=== PATIENT | female | born 1945 | race Caucasian/White ===

== ENCOUNTER → 2022-11-21 | Outpatient (CLI) | payer MEDICARE, OTHER ==
[2022-11-21 09:20] LABS: Partial Thromboplastin Time 23.8 sec (22.0-30.0); Prothrombin Time 10.2 sec (9.0-12.0)
[2022-11-21 15:36] LABS: Basophils # (A) 0.03 X 10*3/uL (0.00-0.10); Basophils % (A) 0.4 %; Eosinophils # (A) 0.45 X 10*3/uL (0.04-0.35); Eosinophils % (A) 6.1 %; HCT 33.7 % (37.2-46.3); HGB 10.6 d/dL (12.0-15.0); Lymphocytes # (A) 1.57 X 10*3/uL (0.90-5.00); Lymphocytes % (A) 21.1 %; MCHC 31.5 d/dL (32.0-37.0); MCV 89.2 FL (80.0-97.0); Mean Platelet Volume 9.2 FL (9.5-12.2); Monocytes # (A) 0.51 X 10*3/uL (0.20-1.00); Monocytes % (A) 6.9 %; NRBC Per 100 WBC 0 X 10*3/uL (0.00-0.01); Neutrophils # (A) 4.84 X 10*3/uL (1.80-7.70); Neutrophils % (A) 65.1 %; Platelet Count 365 X 10*3/uL (140-440); RBC 3.78 X 10*6/uL (4.10-5.20); RDW 13.8 % (11.5-14.5); WBC 7.43 X 10*3/uL (4.50-10.00)
[2022-11-21 16:00] LABS: Blood Urea Nitrogen 30.9 mg/dL (9.0-27.0); Calcium 9.9 mg/dL (8.7-10.3); Carbon Dioxide 25.1 mmol/L (21.6-31.8); Chloride 99 mmol/L (96-109); Glucose 147 mg/dL (70-110); Potassium 5.2 mmol/L (3.5-5.5); Sodium 136 mmol/L (135-145)
== END | disposition home or self-care (01) ==
LOC: LABPAT 08:41
PROVIDERS: ATTEND Orthopaedic Surgery
DX: Z01.812 Encounter for preprocedural laboratory examination (principal); M17.11 Unilateral primary osteoarthritis, right knee; Z22.322 Carrier or suspected carrier of Methicillin resistant Staphylococcus aureus
CPT/HCPCS: 36415; 80048; 85025; 85610; 85730; 87070

== ENCOUNTER 2022-12-10 05:53 | Day surgery (SDC) | payer MEDICARE, OTHER ==
--- NOTE | 2022-12-09 12:38 | HP ---
HISTORY AND PHYSICAL DATE OF SCHEDULED SURGERY: 12/10/2022. HISTORY OF PRESENT ILLNESS: Maritza Torres is a 77-year-old patient seen with symptomatic right knee osteoarthritis. We discussed options, she elected to proceed with right total knee arthroplasty, consent was obtained. Cardiac clearance provided by Dr. Barone. PAST MEDICAL HISTORY: Hypertension, hyperlipidemia, cardiovascular disease. PAST SURGICAL HISTORY: Cardiac catheterization with stent insertion, appendectomy. DAILY MEDICATIONS: 1. Pravastatin. 2. Aspirin. 3. Metoprolol. 4. Lisinopril. 5. Hydrocodone. 6. Brilinta. 7. Advair. ALLERGIES: Motrin. SOCIAL HISTORY: She denies tobacco use. PHYSICAL EVALUATION OF THE RIGHT KNEE: Range of motion is negative 2 to 120 degrees. Tenderness in medial joint line. Crepitus, medial patellofemoral compartments with range of motion. Pain with patellofemoral compression. Ligaments stable. Hip rotation without pain. Distal neurovascular exam is intact. RADIOGRAPHS: Right knee radiographs reveal severe osteoarthritic changes. IMPRESSION: 1. Right knee osteoarthritis. 2. Hypertension. 3. Hyperlipidemia. 4. Cardiovascular disease. PLAN: Right total knee arthroplasty. MMODL / IJN: [id number] /
[~2022-12-10 05:53] MED LIST: ACETAMINOPHEN TAB 500 MG TAB PO PRN; MELOXICAM 7.5 MG TAB PO PRN; TRANEXAMIC 1,000 MG/100ML-NACL 1,000 MG in SALINE 1 100ML.BAG IVPB PRN
[2022-12-10] MEDS ORDERED: LIDOCAINE 1% (10MG/ML) FOR IV START INTRADERMA PRN (06:02)
[2022-12-10] MEDS ORDERED: DEXAMETHASONE SOD PHOSPHATE 4 MG/ML 1 ML VIAL IV ONE (06:02)
[2022-12-10] MEDS ORDERED: ONDANSETRON 4 MG/2 ML VIAL IVP PRN (06:02)
[2022-12-10] MEDS: LACTATED RINGERS 1,000 ML IV SCH (06:20)
[2022-12-10 06:55] LABS: Glucose,Whole Blood 154 mg/dL (70-110)
[2022-12-10] MEDS ORDERED: MIDAZOLAM 2 MG/2 ML VIAL IVP ONE (07:19)
[2022-12-10] MEDS ORDERED: fentaNYL (PF) 50 MCG/ML 2 ML AMP IVP ONE (07:20)
[2022-12-10] MEDS ORDERED: SODIUM CHLORIDE 0.9% (PF) 10 ML VIAL ONE (07:33)
[2022-12-10] MEDS ORDERED: TRANEXAMIC 1,000 MG/100ML-NACL PREMIX BAG ONE (07:33)
[2022-12-10] MEDS ORDERED: PROPOFOL 10 MG/ML 20 ML VIAL IV ONE (07:33)
[2022-12-10] MEDS ORDERED: MIDAZOLAM 2 MG/2 ML VIAL ONE (07:33)
[2022-12-10] MEDS ORDERED: ROPIVACAINE 5 MG/ML 30 ML VIAL ONE (07:33)
[2022-12-10] MEDS ORDERED: Acetaminophen-Codeine 300-30mg TAB PO PRN (09:09)
[2022-12-10] MEDS ORDERED: NALOXONE 0.4 MG/ML 1 ML VIAL IV PRN (09:09)
[2022-12-10] MEDS ORDERED: HYDROmorphone 0.5 MG/0.5 ML SYRINGE IVP PRN ×2 (09:09)
--- NOTE | 2022-12-10 09:09 | P.OP ---
Date of Procedure: 12/10/22 Preoperative Diagnosis: Right knee osteoarthritis Postoperative Diagnosis: Right knee osteoarthritis Procedure(s) Performed: Right total knee arthroplasty Implants: 1. Depuy attune size 4 right cruciate-retaining cemented femur 2. Depuy attune size 4 fixed bearing cemented tibial baseplate 3. Depuy attune size 4 fixed bearing cruciate retaining 70 mm polyethylene tibial insert 4. Ddpuy attune 35 mm all polyethylene cemented patella Anesthesia: regional (Adductor canal catheter, Ipack block), spinal Surgeon: Emerson Rolle Magazine Repairer #1: Bebo Rock Estimated Blood Loss (ml): 35 Pathology: none sent Condition: stable Disposition: PACU Indications for Procedure: 77-year-old patient seen with symptomatic right knee osteoarthritis. After having treatment options discussed, she elected to proceed with total knee arthroplasty. Operative Findings: See description of procedure Description of Procedure: Patient was taken to the operative suite after having an adductor canal catheter placed by the department of anesthesia. Patient underwent a spinal anesthetic by the department of anesthesia. Patient was given preoperative IV intake antibiotics and TXA. A well-padded tourniquet was placed about the right lower extremity. The lower extremity was then prepped and draped in the normal sterile orthopedic fashion. The extremity was elevated, a tourniquet was insufflated to 300. A standard anterior incision was made sharply through skin. Dissection was taken down through the subcutaneous soft tissues down to the extensor mechanism. A medial arthrotomy was performed, patella was everted and knee was flexed. There was advanced osteoarthritis noted. I introduced my distal intramedullary femoral drill. I then introduced the distal femoral cutt ing jig. Sal BURRIS secured the cutting jig with 2 pins. I held retractors in position while Sal BURRIS performed the distal femoral resection through the guide area we now removed her distal femoral cutting guide. We now placed our 4-in-1 femoral cutting block and positioned and it was secured with 2 pins by Sal BURRIS while I held the block in position. The distal femoral finishing was now completed. A proximal tibial cutting guide was positioned. I held the guide in the appropriate position with both hands well Sal BURRIS inserted stabilizing pins into the guide. Proximal tibial cut was made. We now placed a trial femoral component into position, along with an appropriate size tibial tray and insert. We now took the knee through range of motion and had full extension good flexion and good overall soft tissue balance noted. The patella was everted and stabilized with 2 towel clips held by Sal BURRIS while I performed a flush with patellar quad tendon utilizing a fresh sawblade. We templated the patella, appropriate drill holes were made. An appropriate trial patella was positioned, knee was taken through full range of motion with the patella tracking very nicely. The trial patella was removed. Drill holes were made through the femoral component. All trial components were removed after marking off the appropriate rotation of the tibia. Retractors were now positioned along the proximal tibia. An appropriate keel punch was made with the appropriate size tibial guide by myself on Sal BURRIS assisted by holding retractors. At this point appropriate size implants were chosen and opened. The joint was irrigated copiously with pulse lavage mechanical irrigation. The wound was irrigated with pulse lavage mechanical irrigation. We mixed antibiotic methylmethacrylate. We placed the knee into flexion. We placed multiple retractors assisted by Sal BURRIS to expose the proximal tibia. Once the methyl methacrylate was ready, the tibial component was cemented into place removing any excess methylmethacrylate form by both myself and Sal BURRIS. The femoral component was cemented into place removing the removing any excess methylmethacrylate performed by both myself and Sal BURRIS. We then inserted the appropriate size polyethylene tibial insert. We made sure that it was locked into position. We took the knee into full extension, and then back in a flexion making sure we had removed any excess methylmethacrylate. The patellar component was then cemented down and secured with clamp. Excess methylmethacrylate removed. We kept the knee in full extension, patellar clamp in position until methylmethacrylate had hardened. Once it had hardened the patellar clamp was removed. The knee was taken through full range of motion. The patella tracked nicely. There was good soft tissue balancing. The tourniquet was now released. Additional hemostasis was achieved via electrocautery. A second gram of TXA was given. The wound again was irrigated with pulse lavage mechanical irrigation. The extensor mechanism was repaired with Ethibond suture. We checked the repair with range of motion and it was stable. The subcutaneous soft tissues were repaired with Vicryl in layers. The skin was approximated with pernio/Dermabond. Sterile dressings were applied followed by loose web roll and Russell bandage. The patient was transferred to a bed, and taken to recovery in stable and satisfactory condition. Sal BURRIS assisted with this complex procedure.
--- NOTE | 2022-12-10 09:17 | P.ANPRN ---
Procedure Note - Anesthesia - Nerve Block Performed Right Adductor Canal Infusion Time Out Performed: Yes (0716) Date of Procedure: 12/10/22 Procedure Start Time: : Procedure Stop Time: Location of Patient: PreOp Indication: Acute Post-Operative Pain, Requested by Surgeon Specifically requested for management of pain by DrWilmer: Emerson Rolle Sedation Type: Sedate with meaningful contact maintained Preparation: Sterile Prep Position: Supine Catheter Depth at Skin (cm): 8 Catheter: Indwelling Needle Types: Pajunk Needle Gauge: 18 Ultrasound used to visualize needle placement: Yes Ultrasound used to observe medication spread: Yes Injectate: 0.5% Ropivacaine (see comment for volume) (15cc+ 5cc nacl pf) Blood Aspirated: No Pain Paresthesia on Injection Noted: No Resistance on Injection: Normal Image Stored and Saved: Yes Events: Uneventful and Well Tolerated
--- NOTE | 2022-12-10 09:18 | P.ANPRN ---
Procedure Note - Anesthesia - Nerve Block Performed Right iPack Single Time Out Performed: Yes (0719) Date of Procedure: 12/10/22 Procedure Start Time: Procedure Stop Time: Location of Patient: PreOp Indication: Acute Post-Operative Pain, Requested by Surgeon Specifically requested for management of pain by DrWilmer: Sascha Escobedo Sedation Type: Sedate with meaningful contact maintained Preparation: Sterile Prep Position: Supine Catheter: None Needle Types: Pajunk Needle Gauge: 21 Ultrasound used to visualize needle placement: Yes Ultrasound used to observe medication spread: Yes Injectate: 0.5% Ropivacaine (see comment for volume) (15cc+ 5cc nacl pf) Blood Aspirated: No Pain Paresthesia on Injection Noted: No Resistance on Injection: Normal Image Stored and Saved: Yes Events: Uneventful and Well Tolerated
--- NOTE | 2022-12-10 09:50 | XR ---
EXAMINATION TYPE: XR knee limited RT DATE OF EXAM: 12/10/2022 9:45 AM INDICATION: Patient age:Female; 77 years old; Reason for study: Evaluation for Postop abnormality and alignment; [facility]. COMPARISON: Right knee radiograph 11/02/2022 TECHNIQUE: The Right knee(s) was examined in frontal and crosstable lateral projections. FINDINGS: Postsurgical changes from right knee arthroplasty with distal femoral and proximal tibial components. Hardware appears intact with appropriate alignment. There is associated soft tissue gas and edema. No acute fracture or dislocation. IMPRESSION: Postsurgical changes from right knee arthroplasty. Hardware appears intact with appropriate alignment .
[2022-12-10] MEDS ORDERED: ROPIVACAINE 0.2%-NS ON-Q PUMP 2 MG/ML EACH MISCELLANE PRN (10:04)
[2022-12-10] MEDS: HYDROmorphone 0.5 MG/0.5 ML SYRINGE IVP PRN ×5 (11:45→19:42)
[2022-12-10] MEDS ORDERED: SODIUM CHLORIDE 0.9% 1,000 ML IV ONE ×2 (13:19)
[2022-12-10 13:45] LABS: Glucose,Whole Blood 265 mg/dL (70-110)
[2022-12-10] MEDS ORDERED: INSULIN ASPART (NovoLOG) 100 UNIT/ML VIAL SQ ONE (14:10)
[2022-12-10] MEDS ORDERED: LABETALOL SYRINGE 5 MG/ML (4 ML SYR) IVP ONE (14:15)
[2022-12-10 16:54] LABS: Glucose,Whole Blood 169 mg/dL (70-110)
[2022-12-10] MEDS: ONDANSETRON 4 MG/2 ML VIAL IVP PRN (18:08)
[2022-12-10] MEDS ORDERED: DEXTROSE 50% SYRINGE 50 ML IVP PRN ×2 (18:08)
[2022-12-10] MEDS: Acetaminophen-Codeine 300-30mg TAB PO PRN ×2 (18:08→21:02)
[2022-12-10] MEDS: INSULIN ASPART (NovoLOG) 100 UNIT/ML VIAL SQ SCH (19:05)
[2022-12-10] MEDS: ENOXAPARIN 30 MG/0.3 ML SYRINGE SQ SCH (20:51)
[2022-12-10] MEDS ORDERED: SENNOSIDES-DOCUSATE SODIUM 1 EACH TAB PO SCH (21:00)
[2022-12-10] MEDS ORDERED: PRAVASTATIN SODIUM 80 MG TAB PO SCH (21:00)
[2022-12-10] MEDS: SACUBITRIL/VALSARTAN 49 MG-51 MG TABLET PO SCH (21:01)
[2022-12-10] MEDS: NIACIN TR 500 MG CAPLET PO SCH (21:01)
[2022-12-10] MEDS: POTASSIUM CHLORIDE ER 20 MEQ TAB.ER PO SCH (21:01)
[2022-12-10] MEDS: GLIMEPIRIDE 1 MG TAB PO SCH (21:02)
[2022-12-10 21:04] LABS: Glucose,Whole Blood 162 mg/dL (70-110)
[2022-12-10] MEDS: SODIUM CHLORIDE 0.9% 1,000 ML IV SCH (21:05)
[2022-12-10] MEDS: carvediloL 12.5 MG TAB PO SCH (21:05)
--- NOTE | 2022-12-10 21:17 | P.CONS ---
History of Present Illness - Reason for Consult Consult date: 12/10/22 Medical management Requesting physician: Emerson Rolle - Chief Complaint Right knee surgery - History of Present Illness Very pleasant 77-year-old patient follows with Dr. Briseno. Chronic stable medical conditions include CAD with stent, COPD, diabetes, hypertension, hyperlipidemia, psoriasis. Patient has undergone right total knee arthroplasty. Slight nausea. No chest pain no shortness of breath. Laying in bed. Review of systems: GEN.: None EYES: None HEENT: None NECK: None RESPIRATORY: None CARDIOVASCULAR: None GASTROINTESTINAL: None GENITOURINARY: None MUSCULOSKELETAL: Joint pains LYMPHATICS: None HEMATOLOGICAL: None PSYCHIATRY: None NEUROLOGICAL: None Social history: Lives alone. Smoked for about 20 years stopped in 1983. About 1-1/2 packs a day. No alcohol. Physical examination: VITAL SIGNS: 97.7, 91, 18, 150/74, 90% room air GENERAL: BMI 34.5, declining but awake not in distress. EYES: Pupils equal. Conjunctiva normal. HEENT: External appearance of nose and ears normal, oral cavity grossly normal. NECK: JVD not raised; masses not palpable. HEART: First and second heart sounds are normal; no edema. LUNGS: Respiratory rate normal; clear to auscultation. ABDOMEN: Soft, nontender, liver spleen not palpable, no masses palpable. PSYCH: Alert and oriented x3; mood and affect normal. MUSCULOSKELETAL:No Clubbing/cyanosis;muscles-grossly intact. Dressing over the right knee. OA. NEUROLOGICAL: Cranial nerves grossly intact; no facial asymmetry, power and sensation grossly intact. LYMPHATICS: No lymph nodes palpable in the axilla and neck INVESTIGATIONS, reviewed in the clinical context: 11/21/2022: White count 7.4 hemoglobin 10.6 platelets 365 sodium 136 potassium 5.2 BUN 30.9 creatinine 1.5 Assessment and plan: -Right total arthroplasty Pain control and DVT prophylaxis per orthopedics -Diabetes mellitus type 2 and oral hypoglycemic Metformin thousand milligrams twice a day. Amaryl 1 mg by mouth twice a day. Diabetic diet. Follow Accu-Cheks and sliding scale. -COPD in a prior smoker Ventolin 2 puffs twice a day. Advair 250/50 one puff twice a day -Hyperlipidemia Pravastatin 80 mg daily at bedtime. Niacin. -CAD with a prior history of stent Aspirin. Coreg. -Obesity BMI 34.5 Weight loss measures Care was discussed with the patient. Questions answered. Home medications and resume. DVT prophylaxis per Dr. Walsh Thank you Past Medical History Past Medical History: Coronary Artery Disease (CAD), COPD, Diabetes Mellitus, Hyperlipidemia, Hypertension, Myocardial Infarction ([place]), Osteoarthritis (OA) Additional Past Medical History / Comment(s): HX OF COLITIS, PSORIASIS, recent heart cath with fluid on lungs and SOB afterwards. hospitalized ( CHF per Dr Whaley's notes) Last Myocardial Infarction Date:: 08/16/12 History of Any Multi-Drug Resistant Organisms: None Reported Past Surgical History: Appendectomy, Heart Catheterization, Heart Catheterization With Stent, Joint Replacement, Orthopedic Surgery, Tubal Ligation Additional Past Surgical History / Comment(s): CARDIAC-STENT X2, ARTHROSCOPY RT HIP, ANTERIOR TOTAL RIGHT HIP REPLACEMENT, nandini ARTHROSCOPIC SHOULDER Past Anesthesia/Blood Transfusion Reactions: No Reported Reaction Date of Last Stent Placement:: 08/2012 Past Psychological History: No Psychological Hx Reported Smoking Status: Former smoker Past Alcohol Use History: None Reported Additional Past Alcohol Use History / Comment(s): STARTED SMOKING AT AGE 16 QUIT SMOKING 1983, SMOKED 1 1/2 PPD Past Drug Use History: None Reported - Past Family History Brother(s) Family Medical History: Cancer Additional Family Medical History / Comment(s): PROSTATE CA Mother Family Medical History: Cancer Additional Family Medical History / Comment(s): KIDNEY Medications and Allergies Home Medications Medication Instructions Recorded Confirmed Type Multivitamins, Thera [Multivitamin] 1 tab PO DAILY 07/29/13 12/10/22 History Niacin [Niaspan] 500 mg PO BID 07/29/13 12/10/22 History Pravastatin Sodium 80 mg PO HS 07/29/13 12/10/22 History Fluticasone/Salmeterol [Advair 1 puff INHALATION Q12HR 09/14/13 12/10/22 History 250-50 Diskus] metFORMIN HCL [Glucophage] 1,000 mg PO BID 05/13/14 12/10/22 History Betameth Sep/ 1 cream TOPICAL HS PRN 03/16/15 12/10/22 History Glimepiride [Amaryl] 1 mg PO BID 03/16/15 12/10/22 History Albuterol Inhaler [Ventolin Hfa 2 puff INHALATION BID 12/06/22 12/10/22 History Inhaler] Aspirin 81 mg PO DAILY 12/06/22 12/10/22 History Empagliflozin [Jardiance] 10 mg PO DAILY 12/06/22 12/10/22 History Furosemide [Lasix] 40 mg PO DAILY 12/06/22 12/10/22 History Potassium Chloride [K-Tab ER] 20 meq PO BID 12/06/22 12/10/22 History Sacubitril/Valsartan [Entresto 49 1 each PO BID 12/06/22 12/10/22 History mg-51 mg Tablet] carvediloL [Carvedilol] 12.5 mg PO BID 12/06/22 12/10/22 History Allergies Allergy/AdvReac Type Severity Reaction Status Date / Time tuberculin, purified protein Allergy Unknown Swelling, Verified 12/10/22 06:13 deriva Hard & [tuberculin,purif.prot.deriv.] painful area at injection site" ibuprofen [From Motrin] Allergy Rash/Hives Verified 12/10/22 06:13 hydrocodone AdvReac "MAKES HER Verified 12/10/22 06:13 FEEL VERY ANXIOUS, Physical Exam Vitals: Vital Signs Temp Pulse Pulse Resp BP Pulse Ox 12/10/22 16:05 97.7 F 81 18 154/74 90 L 12/10/22 14:35 79 16 164/77 100 12/10/22 14:05 74 16 182/80 99 12/10/22 12:45 71 16 156/69 100 12/10/22 12:13 73 16 170/72 100 12/10/22 11:43 72 16 151/66 100 12/10/22 11:15 75 16 149/67 99 12/10/22 10:45 64 16 139/61 99 12/10/22 10:15 61 16 140/58 100 12/10/22 09:52 60 16 148/67 100 12/10/22 09:37 59 L 16 139/60 95 12/10/22 09:21 97.4 F L 65 18 136/65 95 12/10/22 07:32 70 18 100 12/10/22 06:28 97.8 F 67 18 137/62 99 Intake and Output 12/10/22 12/10/22 12/10/22 06:59 14:59 22:59 Intake Total 200 1150 Output Total 435 Balance 200 715 Intake: IV 200 1150 Output: Urine 400 Estimated Blood Loss 35 Other: # Voids 2 Weight 80.1 kg 80.1 kg Results Labs: Abnormal Lab Results - Last 24 Hours (Table) 12/10/22 12/10/22 12/10/22 Range/Units 06:50 13:42 16:53 POC Glucose (mg/dL) 154 H 265 H 169 H (70-110) mg/dL 12/10/22 Range/Units 21:03 POC Glucose (mg/dL) 162 H (70-110) mg/dL
[2022-12-10] MEDS: ALBUTEROL NEBULIZED 2.5 MG/3 ML INHALATION SCH (21:43)
[2022-12-10] MEDS: SYMBICORT 80-4.5 MCG INHALER INHALATION SCH (21:43)
[2022-12-11] MEDS: Acetaminophen-Codeine 300-30mg TAB PO PRN ×3 (02:13→10:36)
[2022-12-11] MEDS: LACTATED RINGERS 1,000 ML IV SCH (05:43)
[2022-12-11 05:55] LABS: Glucose,Whole Blood 126 mg/dL (70-110)
[2022-12-11] MEDS: SODIUM CHLORIDE 0.9% 1,000 ML IV SCH (06:35)
[2022-12-11 07:05] LABS: African American GFR (CKD) 43 (>60 ml/min/1.73 sqM); Anion Gap 9 mmol/L; Blood Urea Nitrogen 37 mg/dL (7-17); Calcium 9.1 mg/dL (8.4-10.2); Carbon Dioxide 21 mmol/L (22-30); Chloride 103 mmol/L (98-107); Glucose 124 mg/dL (74-99); Non-African American GFR(CKD) 37 (>60 ml/min/1.73 sqM); Potassium 4.6 mmol/L (3.5-5.1); Sodium 133 mmol/L (137-145)
[2022-12-11] MEDS ORDERED: metFORMIN 500 MG TAB PO SCH (07:30)
[2022-12-11] MEDS: INSULIN ASPART (NovoLOG) 100 UNIT/ML VIAL SQ SCH ×2 (08:00→11:53)
[2022-12-11] MEDS: SYMBICORT 80-4.5 MCG INHALER INHALATION SCH (08:46)
[2022-12-11] MEDS: ALBUTEROL NEBULIZED 2.5 MG/3 ML INHALATION SCH (08:46)
[2022-12-11] MEDS ORDERED: FUROSEMIDE 40 MG TAB PO SCH (09:00)
[2022-12-11] MEDS ORDERED: DAPAGLIFLOZIN PROPANEDIOL 5 MG TABLET PO SCH (09:00)
--- NOTE | 2022-12-11 09:03 | P.PN ---
Progress Note - Text Progress Note Date: 12/11/22 Patient seen POD #1 Right TKA Complains of knee pain with a VAS 5-6/10 and feels discomfort is well enough controlled with tylenol #3 orally. Patient up and able to ambulate with walker. Possible discharge to home today. Will follow up as indicated.
[2022-12-11] MEDS: GLIMEPIRIDE 1 MG TAB PO SCH (10:36)
[2022-12-11] MEDS: carvediloL 12.5 MG TAB PO SCH (10:36)
[2022-12-11] MEDS: SACUBITRIL/VALSARTAN 49 MG-51 MG TABLET PO SCH (10:37)
[2022-12-11] MEDS: POTASSIUM CHLORIDE ER 20 MEQ TAB.ER PO SCH (10:37)
[2022-12-11] MEDS: ENOXAPARIN 30 MG/0.3 ML SYRINGE SQ SCH (10:37)
[2022-12-11] MEDS: NIACIN TR 500 MG CAPLET PO SCH (10:40)
[2022-12-11] MEDS: ONDANSETRON 4 MG/2 ML VIAL IVP PRN (10:50)
--- NOTE | 2022-12-11 11:14 | P.DS ---
Providers Date of admission: 12/10/2022 Expected date of discharge: 12/11/22 Attending physician: Emerson Rolle Consults: 12/10/22 09:09 Consult Physician Routine Consulting Provider: Arash Gomez Consult Reason/Comments: Medical management Do you want consulting provider notified?: Yes Primary care physician: Deejay Pleitez [facility] Course: Date of admission: 12/10/2022 Date of discharge: 12/11/2022 Admission diagnosis: Right knee osteoarthritis Discharge diagnosis: Same Attending physician: Dr. Rolle Surgical procedures: Right total knee arthroplasty Brief history: Patient is a 77-year-old female with a history of progressive primary right knee osteoarthritis. At this point patient has failed conservative treatment measures and has opted to proceed with a elective right total knee arthroplasty. Hospital course: Details of patient's surgery can be found in operative report. Patient tolerated the procedure well and was subsequently transported to orthopedic floor. Patient's orthopeidc and medical care was provided daily. Patient had daily laboratory tests performed for evaluation of overall blood counts. Patient had daily physical therapy to include strengthening range of motion as well as education with walker ambulation. Patient was treated with Lovenox for their postoperative DVT prophylaxis during their inpatient stay. Patient was noted to have a relatively uneventful postoperative course. Patient reported satisfactory pain control with oral pain medications by postoperative day 1. Patient showed satisfactory progress with physical therapy. Patient moved steadily through the program and had no difficulty meeting the goals by postoperative day 1. Given patient's otherwise satisfactory course and having met physical therapy goals, plan is to discharge patient home with health services on postoperative day 1. Discharge condition/disposition: Patient will be discharged home with health services in stable condition. Discharge medications: Instructions are given on resumption of patient's normal daily medications per primary care recommendation, in addition patient will be prescribed Tylenol with codeine; senna; resume aspirin 81 mg twice a day 30 days. Discharge instructions: 1. Wound care and infection precautions, keep incision dry and covered while showering, no lotions, creams, moisturizers. No soaking, tubs, pools, hottubs. Do not scrub over the incision. 2. Weight-bear as tolerated with walker / cane until follow-up. 3. Ice and elevate when necessary. Do not exceed 20 minutes per hour with ice pack. 4. Utilize compression sleeve until seen at first follow up appointment. 5. Visiting nursing care. 6. Home physical therapy including home CPM. 7. Pain meds and anticoagulants per prescription. 8. Pain medication has potential to cause constipation. Increase oral fluid and fiber intake. Contact primary care provider if you have not had a bowel movement within 48 hours after discharge 9. No anti-inflammatory medication until discussed at first post operative visit, this including Motrin, Aleve, Mobic, Diclofenac. 10. Follow up in office at 2 weeks postop with Sal Rock PA-C / Charles Quintana PA-C 11. Follow up with your primary care doctor 7-10 days after discharge. 12. Contact [facility] with any questions, . Assessment: Right knee osteoarthritis Procedures: Right total knee arthroplasty Patient Condition at Discharge: Good Plan - Discharge Summary Discharge Rx Participant: No New Discharge Prescriptions: New Acetaminophen-Codeine 300-30mg [Tylenol w/codeine #3] 1 - 2 tab PO Q4-6H PRN #36 tablet PRN Reason: Pain Sennosides/Docusate Sodium [Senna Plus 8.6-50 mg Softgel] 1 each PO DAILY #20 capsule Continue Aspirin 81 mg PO BID No Action Pravastatin Sodium 80 mg PO HS Niacin [Niaspan] 500 mg PO BID Multivitamins, Thera [Multivitamin] 1 tab PO DAILY Fluticasone/Salmeterol [Advair 250-50 Diskus] 1 puff INHALATION Q12HR metFORMIN HCL [Glucophage] 1,000 mg PO BID Betameth Sep/ 1 cream TOPICAL HS PRN PRN Reason: Itching Glimepiride [Amaryl] 1 mg PO BID Potassium Chloride [K-Tab ER] 20 meq PO BID Albuterol Inhaler [Ventolin Hfa Inhaler] 2 puff INHALATION BID Sacubitril/Valsartan [Entresto 49 mg-51 mg Tablet] 1 each PO BID Furosemide [Lasix] 40 mg PO DAILY Empagliflozin [Jardiance] 10 mg PO DAILY carvediloL [Carvedilol] 12.5 mg PO BID Discharge Medication List Multivitamins, Thera [Multivitamin] 1 tab PO DAILY 07/29/13 [History] Niacin [Niaspan] 500 mg PO BID 07/29/13 [History] Pravastatin Sodium 80 mg PO HS 07/29/13 [History] Fluticasone/Salmeterol [Advair 250-50 Diskus] 1 puff INHALATION Q12HR 09/14/13 [History] metFORMIN HCL [Glucophage] 1,000 mg PO BID 05/13/14 [History] Betameth 1 cream TOPICAL HS PRN 03/16/15 [History] Glimepiride [Amaryl] 1 mg PO BID 03/16/15 [History] Albuterol Inhaler [Ventolin Hfa Inhaler] 2 puff INHALATION BID 12/06/22 [History] Aspirin 81 mg PO BID 12/06/22 [History] Empagliflozin [Jardiance] 10 mg PO DAILY 12/06/22 [History] Furosemide [Lasix] 40 mg PO DAILY 12/06/22 [History] Potassium Chloride [K-Tab ER] 20 meq PO BID 12/06/22 [History] Sacubitril/Valsartan [Entresto 49 mg-51 mg Tablet] 1 each PO BID 12/06/22 [History] carvediloL [Carvedilol] 12.5 mg PO BID 12/06/22 [History] Acetaminophen-Codeine 300-30mg [Tylenol w/codeine #3] 1 - 2 tab PO Q4-6H PRN #36 tablet 12/11/22 [Rx] Sennosides/Docusate Sodium [Senna Plus 8.6-50 mg Softgel] 1 each PO DAILY #20 capsule 12/11/22 [Rx] Follow up Appointment(s)/Referral(s): [facility] [NON-STAFF] - 1 Week (Call [facility] when you get home and they will deliver your CPM) [facility] [PHYSICIAN EMPLOYEE OPERATIONS EXAMINER] - 2 Weeks [facility] [NON-STAFF] - 1 Week ([facility] will call [facility] to arrange a visit) Patient Instructions/Handouts: Knee Replacement (DC) Activity/Diet/Wound Care/Special Instructions: Orthopedic Discharge Instructions: 1. Wound care and infection precautions, keep incision dry and covered while showering, no lotions, creams, moisturizers. No soaking, pools, hot tubs. Do not scrub over incision. 2. Weight-bear as tolerated with walker / cane until follow-up. 3. Ice and elevate when necessary. Do not exceed 20 minutes per hour with ice pack. 4. Utilize compression sleeve until seen at first follow up appointment. 5. Pain meds and anticoagulants per prescription. 6. Pain medication has potential to cause constipation. Increase oral fluid and fiber intake. Contact primary care provider if you have not had a bowel movement within 48 hours after discharge. 7. No anti-inflammatory medication until discussed at first post operative visit, this including Motrin, Aleve, Mobic, Diclofenac. 8. Follow up in office at 2 weeks postop with Sal Rock PA-C / Charles Quintana PA-C 9. Follow up with your primary care doctor 7-10 days after discharge. 10. Contact [facility] with any questions, . Keep incision clean, dry, intact. While showering, cover silver foam dressing with saran wrap. Silver foam dressing may be removed beginning 12/17/2022. Okay to shower directly over incision once dressing is removed. Discharge Disposition: HOME WITH HOME HEALTH SERVICES
--- NOTE | 2022-12-11 11:17 | P.PN ---
Subjective Progress Note Date: 12/11/22 Principal diagnosis: Right knee osteoarthritis Patient was seen at bedside this morning sitting up in chair with legs elevated icing right knee. Dressing is present over right knee. Patient says she is having pain in both of the back of the knee and that the front of the knee. Patient says she did get up with physical therapy earlier this morning and walked down the mejia and up-and-down stairs. Patient says she does have a walker at home. Patient says she has urinated since surgery yesterday. Patient says she is looking forward to going home today. Patient denies any other issues at this time. Patient denies chest pain, fever, shortness breath, nausea, vomiting, change in vision, loss of bowel/bladder control. Objective - Vital Signs Vital signs: Vital Signs Temp 97.4 F L 12/11/22 07:17 Pulse 80 12/11/22 09:00 Resp 17 12/11/22 07:17 BP 149/74 12/11/22 07:17 Pulse Ox 96 12/11/22 09:02 FiO2 Intake & Output 12/10/22 12/11/22 12/11/22 18:59 06:59 18:59 Intake Total 1150 118 Output Total 435 Balance 715 118 Weight 80.1 kg Intake: IV 1150 Oral 118 Output: Urine 400 Estimated Blood Loss 35 Other: Voiding Method Toilet # Voids 2 1 - Exam Right knee: Incision is clean, dry, and intact. The silver foam dressing is in good condition. There is minimal soft tissue swelling and ecchymosis surrounding the medial and lateral aspects of the incision. Calf is soft, no tenderness with palpation. Plantar flexion, dorsiflexion, EHL, FHL are intact. Sensory exam to light touch throughout the extremity is intact, dorsal pedis pulses 2+. - Labs CBC & Chem 7: 12/11/22 06:31 Labs: Abnormal Lab Results - Last 24 Hours (Table) 12/10/22 12/10/22 12/10/22 Range/Units 13:42 16:53 21:03 Sodium (137-145) mmol/L Carbon Dioxide (22-30) mmol/L BUN (7-17) mg/dL Creatinine (0.52-1.04) mg/dL Glucose (74-99) mg/dL POC Glucose (mg/dL) 265 H 169 H 162 H (70-110) mg/dL 12/11/22 12/11/22 Range/Units 05:53 06:31 Sodium 133 L (137-145) mmol/L Carbon Dioxide 21 L (22-30) mmol/L BUN 37 H (7-17) mg/dL Creatinine 1.38 H (0.52-1.04) mg/dL Glucose 124 H (74-99) mg/dL POC Glucose (mg/dL) 126 H (70-110) mg/dL Assessment and Plan Assessment: 1. Right knee osteoarthritis - Postoperative day 1 status post right total knee arthroplasty Plan: 1. Right knee osteoarthritis - right total knee arthroplasty from yesterday, Mo nday, 12/10/2022. Patient stable bedside this morning. Patient did do well with therapy this morning. Patient does have a walker at home. Discharge home today with health services. 2. Appreciate medical management 3. Pain management - Tylenol with Codeine 4. DVT prophylaxis - Lovenox in hospital. Going home with aspirin 81 mg twice a day 30 days 5. GI prophylaxis - senna 6. PT/OT - weightbearing as tolerated with walker 7. Encourage incentive spirometer use 8. Discharge planning - discharge home with health services today. Time with Patient: Less than 30
[2022-12-11 11:18] LABS: Basophils # (A) 0.03 X 10*3/uL (0.00-0.10); Basophils % (A) 0.2 %; Eosinophils # (A) 0 X 10*3/uL (0.04-0.35); Eosinophils % (A) 0 %; HCT 31.2 % (37.2-46.3); HGB 9.8 d/dL (12.0-15.0); Lymphocytes # (A) 1.26 X 10*3/uL (0.90-5.00); Lymphocytes % (A) 9.6 %; MCH 27.7 pg (27.0-32.0); MCHC 31.4 d/dL (32.0-37.0); MCV 88.1 FL (80.0-97.0); Monocytes # (A) 1.12 X 10*3/uL (0.20-1.00); Monocytes % (A) 8.5 %; NRBC Per 100 WBC 0 X 10*3/uL (0.00-0.01); Neutrophils # (A) 10.64 X 10*3/uL (1.80-7.70); Neutrophils % (A) 81.2 %; Platelet Count 303 X 10*3/uL (140-440); RBC 3.54 X 10*6/uL (4.10-5.20); RDW 13.6 % (11.5-14.5); WBC 13.12 X 10*3/uL (4.50-10.00)
[2022-12-11 11:36] LABS: Glucose,Whole Blood 150 mg/dL (70-110)
[2022-12-11] MEDS ORDERED: MULTIVITAMINS, THERA 1 EACH TAB PO SCH (12:00)
[2022-12-11 16:01] VITALS: BP 114/70; PULSE 78; RESP 17; TEMP 97.8
--- NOTE | 2022-12-11 20:08 | P.PN ---
Progress Note - Text Progress Note Date: 12/11/22 - Chief Complaint Right knee surgery - History of Present Illness Very pleasant 77-year-old patient follows with Dr. Briseno. Chronic stable medical conditions include CAD with stent, COPD, diabetes, hypertension, hyperlipidemia, psoriasis. Patient has undergone right total knee arthroplasty. Slight nausea. No chest pain no shortness of breath. Laying in bed. December 11: Doing well. No new issues. Tolerating diet. Did ambulate. Pain c ontrolled. No chest pain or shortness of breath. Meds reviewed Social history: Lives alone. Smoked for about 20 years stopped in 1983. About 1-1/2 packs a day. No alcohol. Physical examination: VITAL SIGNS: 97.8, 78, 17, 1.4 x 70, 93% room air GENERAL: Sitting up comfortable EYES: Pupils equal. Conjunctiva normal. HEENT: External appearance of nose and ears normal, oral cavity grossly normal. NECK: JVD not raised; masses not palpable. HEART: First and second heart sounds are normal; no edema. LUNGS: Respiratory rate normal; clear to auscultation. ABDOMEN: Soft, nontender, liver spleen not palpable, no masses palpable. PSYCH: Alert and oriented x3; mood and affect normal. MUSCULOSKELETAL:No Clubbing/cyanosis;muscles-grossly intact. Dressing over the right knee. OA. INVESTIGATIONS, reviewed in the clinical context: December 11: White count 13.1 hemoglobin 9.8 potassium 4.6 BUN 37 and creatinine 1.38 11/21/2022: White count 7.4 hemoglobin 10.6 platelets 365 sodium 136 potassium 5.2 BUN 30.9 creatinine 1.5 Assessment and plan: -Right total arthroplasty Pain control and DVT prophylaxis per orthopedics -Diabetes mellitus type 2 and oral hypoglycemic Metformin thousand milligrams twice a day. Amaryl 1 mg by mouth twice a day. Diabetic diet. Follow Accu-Cheks and sliding scale. -COPD in a prior smoker Ventolin 2 puffs twice a day. Advair 250/50 one puff twice a day -Hyperlipidemia Pravastatin 80 mg daily at bedtime. Niacin. -CAD with a prior history of stent Aspirin. Coreg. -Obesity BMI 34.5 Weight loss measures Ferrous sulfate added. Discussed with patient. Follow-up with PCP upon discharge. Thank you
== END 2022-12-11 15:28 | disposition home health service (06) ==
LOC: OR 05:53 → 4SSUR 09:08 → OR 12-11 15:28
PROVIDERS: ATTEND Orthopaedic Surgery
DX: M17.11 Unilateral primary osteoarthritis, right knee (principal); I11.0 Hypertensive heart disease with heart failure; I35.0 Nonrheumatic aortic (valve) stenosis; I25.10 Atherosclerotic heart disease of native coronary artery without angina pectoris; J44.9 Chronic obstructive pulmonary disease, unspecified; E11.9 Type 2 diabetes mellitus without complications; E78.5 Hyperlipidemia, unspecified; Z88.6 Allergy status to analgesic agent; Z88.5 Allergy status to narcotic agent; Z79.84 Long term (current) use of oral hypoglycemic drugs; Z79.51 Long term (current) use of inhaled steroids; Z79.2 Long term (current) use of antibiotics; Z79.01 Long term (current) use of anticoagulants; Z79.82 Long term (current) use of aspirin; Z79.891 Long term (current) use of opiate analgesic; Z79.899 Other long term (current) drug therapy; Z87.891 Personal history of nicotine dependence; Z95.5 Presence of coronary angioplasty implant and graft; Z98.890 Other specified postprocedural states
CPT/HCPCS: 27447; 94640 ×4; 94760; 97161; 64999; 64448; 80048; 85025; 73560; C1776; C1713 ×2; C1751; J2250; J1100; J0690; J2405 ×2; J3010; J1650; J1170; J2795; J1920

== ENCOUNTER → 2023-08-06 | Outpatient (CLI) | payer MEDICARE, OTHER ==
[2023-08-06 13:50] VITALS: BP 134/56; PULSE 65; RESP 17; TEMP 98.1
--- NOTE | 2023-08-06 14:30 | P.HPOB ---
History of Present Illness H&P Date: 08/06/23 Chief Complaint: Template the patient is here for her routine gynecologic exam and mammogram This is a 78-year-old -0-0-3 with an LMP of 1998. The patient is here to establish with this office. It has been about 5 years since her last pelvic exam. She is without gynecologic complaints and denies any postmenopausal bleeding. Review of Systems The patient's weight has been stable over the last year. She denies respiratory, cardiac, or G.I. problems. Past Medical History Past Medical History: Coronary Artery Disease (CAD), Heart Failure, COPD, Diabetes Mellitus, Hyperlipidemia, Hypertension, Myocardial Infarction ([place]), Osteoarthritis (OA) Additional Past Medical History / Comment(s): HX OF COLITIS, PSORIASIS, type 2 diabetes. 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 Last Myocardial Infarction Date:: 08/16/12 History of Any Multi-Drug Resistant Organisms: None Reported Past Surgical History: Appendectomy, Heart Catheterization With Stent, Joint Replacement, Orthopedic Surgery, Tubal Ligation Additional Past Surgical History / Comment(s): CARDIAC-STENT X2, ARTHROSCOPY RT HIP, ANTERIOR TOTAL RIGHT HIP REPLACEMENT, RIGHT ARTHROSCOPIC SHOULDER. Right knee replacement. Colonoscopy 2019 Past Anesthesia/Blood Transfusion Reactions: No Reported Reaction Date of Last Stent Placement:: 08/2012 Past Psychological History: No Psychological Hx Reported Smoking Status: Former smoker Past Alcohol Use History: None Reported Additional Past Alcohol Use History / Comment(s): STARTED SMOKING AT AGE 16 QUIT SMOKING 1983, SMOKED 1 1/2 PPD Past Drug Use History: None Reported Additional History: She is a since 2006. She is a retired factory process workers. She is not sexually active. - Past Family History Brother(s) Family Medical History: Cancer Additional Family Medical History / Comment(s): PROSTATE CA Mother Family Medical History: Cancer Additional Family Medical History / Comment(s): Lung cancer. . Father Family Medical History: Diabetes Mellitus Additional Family Medical History / Comment(s): . Sister(s) Family Medical History: Diabetes Mellitus Medications and Allergies Home Medications Medication Instructions Recorded Confirmed Type Multivitamins, Thera [Multivitamin 1 tab PO DAILY 07/29/13 08/06/23 History (formulary)] Niacin [Niaspan] 500 mg PO BID 07/29/13 08/06/23 History Pravastatin Sodium 80 mg PO HS 07/29/13 08/06/23 History Fluticasone/Salmeterol [Advair 1 puff INHALATION Q12HR 09/14/13 08/06/23 History 250-50 Diskus] metFORMIN HCL [Glucophage] 1,000 mg PO BID 05/13/14 08/06/23 History Betameth 1 cream TOPICAL HS PRN 03/16/15 08/06/23 History Albuterol Inhaler [Ventolin Hfa 2 puff INHALATION BID 12/06/22 08/06/23 History Inhaler] Aspirin 81 mg PO BID 12/06/22 08/06/23 History Empagliflozin [Jardiance] 10 mg PO DAILY 12/06/22 08/06/23 History Furosemide [Lasix] 40 mg PO DAILY 12/06/22 08/06/23 History Potassium Chloride [K-Tab ER] 20 meq PO BID 12/06/22 08/06/23 History Sacubitril/Valsartan [Entresto 49 1 each PO BID 12/06/22 08/06/23 History mg-51 mg Tablet] carvediloL 12.5 mg PO BID 12/06/22 08/06/23 History Allergies Allergy/AdvReac Type Severity Reaction Status Date / Time tuberculin, purified protein Allergy Unknown Swelling, Verified 08/06/23 13:38 deriva Hard & [tuberculin,purif.prot.deriv.] painful area at injection site" ibuprofen [From Motrin] Allergy Rash/Hives Verified 08/06/23 13:38 hydrocodone AdvReac "MAKES HER Verified 08/06/23 13:38 FEEL VERY ANXIOUS, Exam Vital Signs Temp Pulse Resp BP Pulse Ox 08/06/23 13:40 98.1 F 65 17 134/56 98 Intake and Output 08/05/23 08/06/23 08/06/23 22:59 06:59 14:59 Other: Weight 77.111 kg Height 5 feet 0 inches, weight 170 pounds, BMI 33.2. This is a well-developed well-nourished white female who is alert and oriented times 3 in no acute distress. HEENT: Within normal limits. NECK: Supple without mass or thyromegaly. CHEST AND LUNGS: Clear to auscultation. HEART: Regular rate and rhythm. BREASTS: Are without mass or discharge. AXILLARY EXAM: Negative for adenopathy. BACK: Negative for CVA tenderness. ABDOMEN: Soft, nontender, without palpable masses. PELVIC EXAM: Normal external genitalia with mild atrophy. Cervix and vagina appear normal with mild atrophy. There is no unusual discharge. There is a grade 2-3 rectocele noted. There is a minimal cystocele and minimal uterine prolapse. The uterus is midposition, nongravid size and nontender. There are no palpable adnexal masses or tenderness. RECTAL EXAM: Rectovaginal exam is negative for mass or tenderness and is negative for occult blood. It also confirms the rectocele. EXTREMITIES: Nontender. IMPRESSION: 1. 78-year-old menopausal female with asymptomatic grade 2-3 rectocele. 2. Multiple medical problems. PLAN: 1. Pap smear cotest was performed. If this is negative we will repeat this in approximately 4 to 5 years and if they are both negative we will plan on discontinuing Pap smears. 2. Self breast awareness was discussed with the patient. We have also discussed symptoms associated with inflammatory breast cancer. 3. Screening mammogram will be done today. 4. PHQ-2 questionaire was given and she scores 0. This is a negative screen for depression. 5. Osteoporosis prevention was discussed. I have stressed the importance of adequate calcium, vitamin D and regular exercise. Recommended amounts of calcium and vitamin D were also discussed. She does believe she had a bone density test greater than 5 years ago and believes it was normal. I have recommended that she do another bone density test and the order slip was given to the patient for this. 6. She states she is scheduled for a colonoscopy in September 2023. 7. We have discussed the rectocele. We will proceed with conservative management at this time. Have recommended that she not hold her stool longer than necessary. She will call if she is having problems related to this. 8. She was advised to return in one year for her annual well woman exam and as needed.
--- NOTE | 2023-08-07 12:08 | MM ---
Reason for Exam: Screening (asymptomatic). Last mammogram was performed 1 year(s) and 6 month(s) ago. Patient History: Menarche at age 10. First Full-Term at age 22. Postmenopausal. Risk Values: Denise 5 year model risk: 1.7%. NCI Lifetime model risk: 3.3%. Prior Study Comparison: 01/03/2021 Bilateral Screening Mammogram, Unknown. 01/17/2022 Bilateral Screening Mammogram, Unknown. 01/30/2022 Left Diagnostic Mammogram, Unknown. Tissue Density: The breasts are almost entirely fatty. Findings: Analyzed By CAD. Right breast: There is no suspicious group of microcalcifications or new suspicious mass. Benign-appearing calcifications right breast. Left breast: There is no suspicious group of microcalcifications or new suspicious mass. Benign-appearing calcifications left breast. Overall Assessment: Benign, BI-RAD 2 Management: Screening Mammogram of both breasts in [address] [facility] will attempt to contact patient to return for supplemental views and ultrasound if indicated. Patient should continue monthly self-breast exams. A clinical breast exam by your physician is recommended on an annual basis. This exam should not preclude additional follow-up of suspicious palpable abnormalities. Note on Denise scores and lifetime risk: 1. A Denise score greater than 3% is considered moderate risk. If this is the case, consider specialist referral to assess eligibility for a risk reducing agent. 2. If overall lifetime risk for the development of breast cancer is 20% or higher, the patient may qualify for future screening with alternating mammogram and breast MRI. Electronically signed and approved by: Timbo Bryant DO
== END ==
LOC: WWCWWP 13:08
PROVIDERS: ATTEND Obstetrics & Gynecology
DX: Z12.31 Encounter for screening mammogram for malignant neoplasm of breast (principal); N81.6 Rectocele; R92.8 Other abnormal and inconclusive findings on diagnostic imaging of breast; R92.313 Mammographic fatty tissue density, bilateral breasts; Z78.0 Asymptomatic menopausal state; Z87.891 Personal history of nicotine dependence; Z91.018 Allergy to other foods; Z88.6 Allergy status to analgesic agent; Z88.5 Allergy status to narcotic agent
CPT/HCPCS: 77063; 77067

== ENCOUNTER → 2023-08-09 | Outpatient (CLI) | payer MEDICARE, OTHER ==
--- NOTE | 2023-08-10 19:07 | BD ---
EXAMINATION TYPE: Axial Bone Density DATE OF EXAM: 08/09/2023 CLINICAL HISTORY: 78 years old Female. ICD-10 CODE: Z78.0 ASYMP ASAD STATE Height: 60 Weight: 166 FRAX RISK QUESTIONS: Family History (Parent hip fracture): no History of Fracture in Adulthood: no Secondary Osteoporosis: no RISK FACTORS HISTORY OF: Surgery Hip(right) When: 2019 MEDICATIONS: Thyroid Medications: no Osteoporosis Medications: no EXAM MEASUREMENTS: Bone mineral densitometry was performed using the [place] System. Bone mineral density as measured about the Lumbar spine is: ----- L1-L4(G/cm2): 1.372 T Score Values are as follows: ----- L1: 0.7 ----- L2: 1.3 ----- L3: 1.3 ----- L4: 2.9 ----- L1-L4: 1.6 Z Score Values are as follows: ----- L1: 2.2 ----- L2: 2.7 ----- L3: 2.8 ----- L4: 4.3 ----- L1-L4: 3.0 Bone mineral density baseline Bone mineral density about the L hip (g/cm2): 1.077 T Score values are as follows: -----L Neck: -0.1 -----L Total: 0.5 Z Score values are as follows: -----L Neck: 1.7 -----L Total: 2.1 Bone mineral density baseline FRAX%s: The graph provided illustrates a 7.9% chance for a major osteoporotic fx and a 0.8% chance fo r the hips probability for fx in 10 years time. IMPRESSION: Normal (Values between +1 and -1 indicate normal bone mass). Consider repeating this study in 5 year s or sooner if there is some new clinical indication. NOTE: T-SCORE=SD OF THE YOUNG ADULT MEAN.
== END | disposition home or self-care (01) ==
LOC: RADBDWWP 10:19
PROVIDERS: ATTEND Obstetrics & Gynecology
DX: Z78.0 Asymptomatic menopausal state (principal)
CPT/HCPCS: 77080